=== PATIENT | male | born 1955 | race Caucasian/White ===

== ENCOUNTER 2016-12-03 06:17 | Day surgery (SDC) | payer MEDICARE, MEDICAID ==
[~2016-12-03] VITALS: Ht 188 cm; Wt 101.0 kg
[~2016-12-03 06:17] MED LIST: ATIVAN1 MG PO; BACTROBAN OINT.22 GM TP; CATAPRES-DPS0.1 MG PO; CELEXA20 MG PO; DUONEB DPS3 ML IH; FOLVITE-DPS1 MG PO; HABITROL DPS14 MG TP; HYDROCODON-ACE1 EAC6 PO; INDERAL DPS20 MG PO; KENALOG CREAM 080 GM TP; LEVAQUIN500 MG PO; LOPRESSOR DPS50 MG PO; MAALOX DPS30 ML PO; MAG-OX400 MG PO; NITROSTAT0.4 MG SL; NORVASC5 MG PO; PEPCID20 MG PO; SURFAK DPS240 MG PO; THERAPEUTIC MUL1 TAB PO; VITAMIN B1100 MG PO
[2017-02-10] MEDS ORDERED: ADVAIR DIS1 PUFF/DO1 IH (15:21)
[2017-02-10] MEDS ORDERED: MIRALAX PACKET17 GM PO (15:27)
[2017-02-10] MEDS ORDERED: MAALOX DPS30 ML PO (15:27)
[2017-02-10] MEDS ORDERED: SENNA LAX8.6 MG PO (15:27)
[2017-02-10] MEDS ORDERED: PROAIR RESPICL90 MCG IH (15:28)
[2017-02-10] MEDS ORDERED: KLOR-CON M2020 ME1 PO (15:28)
[2017-02-10] MEDS ORDERED: TEMOVATE O.05%15 GM TP (15:28)
[2017-02-10] MEDS ORDERED: TYLENOL DPS325 MG PO (15:29)
[2017-02-10] MEDS ORDERED: DILAUDID2 MG PO (15:29)
[2017-02-10] MEDS ORDERED: VANCOCIN125 MG PO (15:29)
== END 2016-12-03 11:00 | disposition home or self-care (01) ==
LOC: RAD.S 06:17
PROC: 0P943ZX Drainage of Thoracic Vertebra, Percutaneous Approach, Diagnostic (ICD-10-PCS; principal; 2016-12-03)
DX: C41.2 Malignant neoplasm of vertebral column (principal); Z79.899 Other long term (current) drug therapy; Z79.891 Long term (current) use of opiate analgesic

== ENCOUNTER → 2016-12-16 | Outpatient (CLI) | payer MEDICARE, MEDICAID ==
[~2016-12-16] MED LIST changes: +ADVAIR DIS1 PUFF/DO1 IH; +DILAUDID2 MG PO; +KLOR-CON M2020 ME1 PO; +MIRALAX PACKET17 GM PO; +PROAIR RESPICL90 MCG IH; +SENNA LAX8.6 MG PO; +TEMOVATE O.05%15 GM TP; +TYLENOL DPS325 MG PO; +VANCOCIN125 MG PO
== END | disposition home or self-care (01) ==
LOC: RAD.S 09:15
DX: C34.90 Malignant neoplasm of unspecified part of unspecified bronchus or lung (principal)

== ENCOUNTER → 2016-12-23 | Outpatient (CLI) | payer MEDICARE, MEDICAID | END | disposition home or self-care (01) | LOC: RAD.S 08:52 | DX: Z53.9 Procedure and treatment not carried out, unspecified reason (principal) ==

== ENCOUNTER 2016-12-30 08:47 | Day surgery (SDC) | payer MEDICARE, MEDICAID ==
[~2016-12-30] VITALS: Ht 188 cm; Wt 88.0 kg
[~2016-12-30 08:47] MED LIST changes: -ADVAIR DIS1 PUFF/DO1 IH; -DILAUDID2 MG PO; -KLOR-CON M2020 ME1 PO; -MIRALAX PACKET17 GM PO; -PROAIR RESPICL90 MCG IH; -SENNA LAX8.6 MG PO; -TEMOVATE O.05%15 GM TP; -TYLENOL DPS325 MG PO; -VANCOCIN125 MG PO
--- NOTE | 2017-01-11 12:43 | OR ---
ADMIT: 12/30/2016 RM/LOC: [facility] MR#: [id number] [address] [id number] DARRIN BENNETTEN Satish [address] [address] Operative/Delivery Room Report SEX: M AGE: 61 : 1955 SURGERY DATE: 12/30/2016 SURGEON: Arthur Uribe MD PREOPERATIVE DIAGNOSIS: Cancer need for [id number]-[id number] for chemotherapy. POSTOPERATIVE DIAGNOSIS: Cancer need for Qobprc-B-Ocux for chemotherapy. PROCEDURE PERFORMED: Right internal jugular PowerPort placement with ultrasound and fluoro. ANESTHESIA: Sedation. ESTIMATED BLOOD LOSS: None. DESCRIPTION OF PROCEDURE: After appropriate informed consent was obtained, the patient was brought to the operating room. IV sedation was provided. His chest and neck were prepped and draped in a sterile fashion. We used Ioban to further cover things, especially with his large delatorre that kept the delatorre all the way. Ultrasound was used to identify a large right internal jugular vein. 1% lidocaine was injected directly over this. A small incision was made with #11 blade. An 18-gauge Cook needle on a syringe was used to access this right internal jugular vein under real-time ultrasound guidance. A picture was taken from the patient's permanent record with ultrasound. Initially, the guidewire went up to his jugular vein, but I was able to manipulate this down into the superior vena cava. Additional local was injected in the skin and deep tissues in the right upper chest wall. An incision was created and subcutaneous pocket was created. Tubing was then tunneled from the reservoir site up to the neck incision site. A split sheath dilator was then passed over the wire under fluoro guidance. The dilator and wire were removed. Tubing was then passed down through the split sheath and the split sheath was removed. The tubing was then pulled back until tip resided in atriocaval junction. Tubing was cut approximately at 29 cm, attached to PowerPort reservoir and locked into place. The reservoir was then tacked down to the chest wall fascia using a couple of 0 Ethibond sutures. The reservoir was accessed, aspirated, and flushed easily. It was then flushed with heparinized saline. The wound was then closed with 3-0 Vicryl in the dermal layer and running 4-0 Monocryl in the subcuticular layer. Neck incision was closed with single 4-0 Monocryl. Sterile dressings were applied. The patient tolerated the procedure well and was taken to the recovery room in stable condition. Arthur Uribe MD/ daphnie JOB #: [id number] CC: Arthur Uribe, Attending Physician Ramon Cook, Family Physician
[2017-02-10] MEDS ORDERED: ADVAIR DIS1 PUFF/DO1 IH (15:21)
[2017-02-10] MEDS ORDERED: MAALOX DPS30 ML PO (15:27)
[2017-02-10] MEDS ORDERED: MIRALAX PACKET17 GM PO (15:27)
[2017-02-10] MEDS ORDERED: SENNA LAX8.6 MG PO (15:27)
[2017-02-10] MEDS ORDERED: KLOR-CON M2020 ME1 PO (15:28)
[2017-02-10] MEDS ORDERED: PROAIR RESPICL90 MCG IH (15:28)
[2017-02-10] MEDS ORDERED: TEMOVATE O.05%15 GM TP (15:28)
[2017-02-10] MEDS ORDERED: VANCOCIN125 MG PO (15:29)
[2017-02-10] MEDS ORDERED: TYLENOL DPS325 MG PO (15:29)
[2017-02-10] MEDS ORDERED: DILAUDID2 MG PO (15:29)
== END 2016-12-30 14:45 | disposition home or self-care (01) ==
LOC: SSS 08:47
PROC: B513YZA Fluoroscopy of Right Jugular Veins using Other Contrast, Guidance (ICD-10-PCS; principal; 2016-12-30)
PROC: B543ZZA Ultrasonography of Right Jugular Veins, Guidance (ICD-10-PCS; principal; 2016-12-30)
PROC: 05HM33Z Insertion of Infusion Device into Right Internal Jugular Vein, Percutaneous Approach (ICD-10-PCS; principal; 2016-12-30)
DX: C80.1 Malignant (primary) neoplasm, unspecified (principal); I10 Essential (primary) hypertension; J44.9 Chronic obstructive pulmonary disease, unspecified; K75.9 Inflammatory liver disease, unspecified; F32.9 Major depressive disorder, single episode, unspecified; F17.210 Nicotine dependence, cigarettes, uncomplicated; Z98.890 Other specified postprocedural states; Z85.46 Personal history of malignant neoplasm of prostate; Z90.49 Acquired absence of other specified parts of digestive tract; Z79.899 Other long term (current) drug therapy